=== PATIENT | female | born 1960 | race Two or more races ===

== ENCOUNTER 2024-10-03 08:32 | Outpatient (RCR) | payer MEDICAID, SELFPAY ==
--- NOTE | 2024-10-03 13:27 | PT.OIERPT ---
PT OP Initial Eval Patient Information Outpatient Physical Therapy Treatment Date: 10/03/24 Visit Reasons: Right hand carpal tunnel Medical Diagnosis: M79.641; M18.11 Treatment Dx #1: Right Hand Pain Treatment Dx #2: Right Thumb Pain Start of Care: 10/03/24 Smoking Status Smoking Status: Never smoker Initial Assessment Subjective: Pt is a 64 y/o female reports of right hand and thumb pain (710) worsening lately. 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 Hand surgeon recommends surgery, however, patient will like to hold off in the meantime. Pt has limitaiton with gripping, lifting, chores, self care, taking care of her grandkids, and performing recreational activities. 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 Pt will attempt physical therapy if pain persist Pt will be refer back to provider for further consultation. 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
== END 2024-10-04 23:59 | disposition home or self-care (01) ==
LOC: CPTX 08:32
DX: M79.641 Pain in right hand (principal); M79.644 Pain in right finger(s); R53.1 Weakness; M18.11 Unilateral primary osteoarthritis of first carpometacarpal joint, right hand
CPT/HCPCS: 97162

== ENCOUNTER 2024-10-10 08:30 | Outpatient (RCR) | payer MEDICAID, SELFPAY ==
--- NOTE | 2024-10-08 09:26 | PT.ODAYNRPT ---
PT Outpatient Daily Note OP Daily Note Outpatient Physical Therapy Treatment Date: 10/08/24 Visit Reasons: right hand pain Subjective: Pt reports R hand is ok right now, no pain at this time. Objective: Please see flow sheet for ther ex list. Assessment: Interventions completed with minimal pain and tender where pt receives injections. Plan: Continue with POC. Length of Time (minutes) of Treatment: 30 Minutes Procedure Charges Therapeutic Exercise 30 minutes: Yes
--- NOTE | 2024-10-10 11:36 | PT.ODAYNRPT ---
PT Outpatient Daily Note OP Daily Note Outpatient Physical Therapy Treatment Date: 10/10/24 Visit Reasons: right hand pain Subjective: Pt's hand is sore and ache after last session. Pt spoke to her and may consider surgery in the future. Objective: Please see flow chart for list of ther ex performed Assessment: Decrease thumb pain with heat. Pt demonstrate poor tolerance to exercises due to pain Plan: Continue with PT Length of Time (minutes) of Treatment: 30 Minutes Procedure Charges Therapeutic Exercise 30 minutes: Yes
== END 2024-11-01 23:59 | disposition home or self-care (01) ==
LOC: CPTX 08:30
DX: M79.641 Pain in right hand (principal); R53.1 Weakness; M18.11 Unilateral primary osteoarthritis of first carpometacarpal joint, right hand
CPT/HCPCS: 97110

== ENCOUNTER 2025-04-01 08:00 | Outpatient (RCR) | payer MEDICAID, SELFPAY ==
--- NOTE | 2025-03-04 15:39 | PTNOTE_ITS ---
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 Difficulty using the hand with all ADL's and HH chores limited by pain. Pt goal: to get rid of the pain to use the hand Objective: Andreas wind turbine mechanic strength R: 20 lbs, L: 60 lbs R thumb AROM: Extension: 30 deg Flexion: neutral abduction: 30 deg Wrist AROM; Flexion: 65 deg Extension: 50 deg TTP: high of 1st CMC joint Assessment: Pt presents with high tissue irritability and limited ROM of R thumb with all movements, limited wind turbine mechanic strength and high TTP of 1st CMC joint. Pt requires skilled therapy to meet goals and has fair rehab potential. Short Term and [facility] Goals 1. Ind with HEP 2. Improved thumb AROM to 45 deg extension and 30 deg 3. Improved wind turbine mechanic strength to at least 30 lbs 4. Pt will be able to dress and do hair care with <=3/10 thumb pain Treatment Plan ?1. Manual therapy ? 2. Therex ? 3. Modalities as indicated, moist heat, ice, estim Frequency and Duration: 2x a week for 12 visits plus the evaluation Certification Dates: 03/04/25 to 06/03/25 Procedure Charges OP PT Eval Mod Complex 30 minutes: Yes
--- NOTE | 2025-03-11 09:09 | PT.ODAYNRPT ---
PT Outpatient Daily Note OP Daily Note Outpatient Physical Therapy Treatment Date: 03/11/25 Visit Reasons: right thumb surgery Subjective: She is using the R hand with clothes pins and HH chores with some soreness in thumb. Objective: See F/S for therex MT: STM incision scar, PROM thumb into flexion and extension x7' MHP: x7' Assessment: LImited thumb AROM into extension and flexion. Pt was taught HEP of PROM stretches as part of HEP. Scar is moderately TTP Plan: Continue per POC Length of Time (minutes) of Treatment: 30 Minutes Procedure Charges Therapeutic Exercise 30 minutes: Yes
--- NOTE | 2025-03-13 11:19 | PT.ODAYNRPT ---
PT Outpatient Daily Note OP Daily Note Outpatient Physical Therapy Treatment Date: 03/13/25 Visit Reasons: right thumb surgery Subjective: She is using the R hand with clothes pins and HH chores with some soreness in thumb. Objective: See F/S for therex MT: PROM thumb into extension x5' MHP: x7' Assessment: Limited thumb AROM into extension and flexion. Pt was taught HEP of PROM stretches as part of HEP. Plan: Continue per POC Length of Time (minutes) of Treatment: 30 Minutes Procedure Charges Therapeutic Exercise 30 minutes: Yes
--- NOTE | 2025-03-20 13:09 | PT.ODAYNRPT ---
PT Outpatient Daily Note OP Daily Note Outpatient Physical Therapy Treatment Date: 03/18/25 Visit Reasons: right thumb surgery Subjective: She is using the R hand with clothes pins and HH chores with some soreness in thumb. Objective: See F/S for therex MT: PROM thumb into extension x5' MHP: x7' Assessment: Limited thumb AROM into extension and flexion. Pt was taught HEP of PROM stretches as part of HEP. Plan: Continue per POC Length of Time (minutes) of Treatment: 30 Minutes Procedure Charges Therapeutic Exercise 30 minutes: Yes
--- NOTE | 2025-03-20 13:10 | PTNOTE_ITS ---
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
--- NOTE | 2025-03-25 08:12 | PT.ODAYNRPT ---
PT Outpatient Daily Note OP Daily Note Outpatient Physical Therapy Treatment Date: 03/25/25 Visit Reasons: right thumb surgery Subjective: Pt reports R thumb continues to hurt with activities such as doing laundry. Objective: Please see flow sheet for ther ex list. Assessment: Continued with focus on improving functional strength and reduce tissue adhesion and desensitize. Plan: Continue with poC. Length of Time (minutes) of Treatment: 30 Minutes Procedure Charges Therapeutic Exercise 30 minutes: Yes
--- NOTE | 2025-03-28 15:07 | PT.ODAYNRPT ---
PT Outpatient Daily Note OP Daily Note Outpatient Physical Therapy Treatment Date: 03/28/25 Visit Reasons: right thumb surgery Subjective: Pt reports she went to see surgeon today, pt c/o hand still swollen and high pain with light activities. Doctor wrote another order for PT and recommended pt wear a sling for compression. Objective: Please see flow sheet for ther ex list. Assessment: Regressed interventions to accommodate reported pain. Plan: Continue with POC. Length of Time (minutes) of Treatment: 30 Minutes Procedure Charges Therapeutic Exercise 30 minutes: Yes
--- NOTE | 2025-04-01 08:30 | PT.ODAYNRPT ---
PT Outpatient Daily Note OP Daily Note Outpatient Physical Therapy Treatment Date: 04/01/25 Visit Reasons: right thumb surgery Subjective: Pt reports R thumb has been really painful, mentioned that she has been taking pain medication as prescribed. Pt shared she was feeling depressed yesterday and was really emotional. Objective: Please see flow sheet for ther ex list. Assessment: Light interventions performed and interventions modified per surgeon instruction.Pt continues to have high pain limiting tolerance to interventions and MT. Plan: Continue with POC. Length of Time (minutes) of Treatment: 30 Minutes Procedure Charges Therapeutic Exercise 30 minutes: Yes
== END 2025-04-03 23:59 | disposition home or self-care (01) ==
LOC: CPTX 08:00
PROVIDERS: PCP Surgery Surgery of the Hand; Referring Provider Surgery Surgery of the Hand; Visit Provider Surgery Surgery of the Hand
DX: M79.641 Pain in right hand (principal); M18.11 Unilateral primary osteoarthritis of first carpometacarpal joint, right hand; Z98.890 Other specified postprocedural states
CPT/HCPCS: 97110; 97162

== ENCOUNTER 2025-04-22 08:00 | Outpatient (RCR) | payer MEDICAID, SELFPAY ==
--- NOTE | 2025-04-08 08:47 | PT.ODAYNRPT ---
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 Pt has limited ROM of 1st CMC limited by pain which seems to be an exaggerated pain response by high inflammation which may be a global issue. Plan: Continue per POC Length of Time (minutes) of Treatment: 30 Minutes Procedure Charges Therapeutic Exercise 30 minutes: Yes
--- NOTE | 2025-04-10 08:18 | PT.ODAYNRPT ---
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 Pt has limited ROM of 1st CMC limited by pain which seems to be an exaggerated pain response by high inflammation which may be a global issue. Plan: Continue per POC Length of Time (minutes) of Treatment: 30 Minutes Procedure Charges Therapeutic Exercise 30 minutes: Yes
--- NOTE | 2025-04-15 09:13 | PTNOTE_ITS ---
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 Pt has limited ROM of 1st CMC limited by pain which seems to be an exaggerated pain response by high inflammation which may be a global issue. Plan: Continue per POC Length of Time (minutes) of Treatment: 30 Minutes Procedure Charges Therapeutic Exercise 30 minutes: Yes
--- NOTE | 2025-04-17 09:10 | PTNOTE_ITS ---
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 Pt has limited ROM of 1st CMC limited by pain which seems to be an exaggerated pain response by high inflammation which may be a global issue. Plan: Continue per POC Length of Time (minutes) of Treatment: 30 Minutes Procedure Charges Therapeutic Exercise 30 minutes: Yes
--- NOTE | 2025-04-22 08:29 | PTNOTE_ITS ---
PT OP Progress/Discharge Note Date of Service: 04/22/25 Progress Note/DC Note Progress Note/Discharge Note: DC Note Patient Information Visit Reasons: Rt thumb surgery Service Continue Service or Discharge: Discharge Discharge Date: 04/22/25 Status Subjective: Doing HEP and HH chores with thumb and high incision pain Objective: See F/S for therex MT: STM incision scar x5' State Attorney strength: R: 26 lbs, L: 40 lbs R thumb ArOM: Extension: 30 deg Flexion: 30 deg Abduction: 30 deg Wrist AROM: Flexion: 65 deg Extension: 50 deg TTP: min/mod of 1st CMC joint and incision scar Assessment: Pt has attended the eval and 08/15 Rx sessions with good progress with therapy goals. 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 Pt has good function of hand with ADL's and HH chores. Pt has limited ROM of 1st CMC limited by pain which seems to be an exaggerated pain response by inflammation which may be a global issue. Progress has plateaued with ROM and pain goals but functional goals are met. She can dress and do hair care with <3/10 thumb pain. Plan: D/C with HEP Procedure Charges Therapeutic Exercise 30 minutes: Yes
== END 2025-05-04 23:59 | disposition home or self-care (01) ==
LOC: CPTX 08:00
PROVIDERS: PCP Surgery Surgery of the Hand; Referring Provider Surgery Surgery of the Hand; Visit Provider Surgery Surgery of the Hand
DX: M79.641 Pain in right hand (principal); M18.11 Unilateral primary osteoarthritis of first carpometacarpal joint, right hand
CPT/HCPCS: 97110